=== PATIENT | male | born 1995 | race Two or more races ===

== ENCOUNTER 2017-01-14 00:40 | Emergency (ER) | payer OTHER ==
[~2017-01-14] VITALS: Ht 180.3 cm; Wt 104.3 kg
[2017-01-14 00:51] VITALS: BP 160/81
--- NOTE | 2017-01-14 00:57 | NUR ---
AMBULATED TO ER BED 5 FROM [facility]
--- NOTE | 2017-01-14 00:57 | NUR ---
PATIENT PRESENTS TO ED WITH LACERATION TO LIPS AFTER A FALL . AAOX4 WITH EVEN AND STEADY GAIT; DENIES N/V/D; SKIN IS PINK/WARM/DRY; LACERATION NOTED TO LIPS, LUNGS CLEAR BL; HR EVEN AND REGULAR; PT DENIES ANY FEVER, CP, SOB, OR COUGH AT THIS TIME; PATIENT STATES PAIN OF 10/10 AT THIS TIME; VSS; PATIENT POSITIONED FOR COMFORT; HOB ELEVATED; BEDRAILS UP X2; BED DOWN. ER MD MADE AWARE OF PT STATUS.
[2017-01-14] MEDS ORDERED: LIDOCAINE 1% 500 MG/50 ML VIAL INJ ONE (01:25)
[2017-01-14 02:38] VITALS: BP 160/81
== END 2017-01-14 02:38 | disposition home or self-care (01) ==
LOC: MED 00:40
DX: S01.511A Laceration without foreign body of lip, initial encounter (principal); W09.8XXA Fall on or from other playground equipment, initial encounter; Y93.89 Activity, other specified; Y92.89 Other specified places as the place of occurrence of the external cause; Y99.8 Other external cause status
CPT/HCPCS: 12011; 99283; J2001